=== PATIENT | male | born 1980 | race Caucasian/White ===

== ENCOUNTER 2017-03-11 18:55 | Emergency (ER) | payer OTHER ==
[2017-03-11 19:09] VITALS: BP 144/91; PULSE 66; RESP 16; O2SAT 97
--- NOTE | 2017-03-11 19:55 | ED.REPORT ---
HPI-General Illness Date of Service Mar 11, 2017 ED Provider: Razia Viera DO Pt is an otherwise healthy 36 year old male who presents to the ED after a needlestick exposure on 03/08/17. 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 He denies any other other symptoms. Nursing Notes Stated Complaint: EXPOSURE Chief Complaint: General Complaint Nursing Notes Reviewed: Yes Allergies: Coded Allergies: No Known Allergies (Unverified , 03/11/17) General Time Seen by MD: 19:54 Chief Complaint Other (Needle stick) Hx Obtained From: Patient Arrived By: Walk-in Sudden in Onset?: No Onset Occurred: 3 days ago Symptom Duration: Since onset Severity: Current: No pain currently Severity: Maximum: No pain Recent Healthcare: No recent doctor visit, No recent hospitalization Similar Sx Previous: No Past Medical History Past Medical History Denies Past Surgical History Denies Smoking History Unknown if Ever Smoker Social History Alcohol Use: Denies alcohol use Drug Use: Denies drug use Ambulatory Status Independent Review of Systems Full Review of Systems Constitutional: Denies: Fever Respiratory: Denies: Non-productive cough, Shortness of breath Musculoskeletal: Reports: Extremity pain Complete sys rev & neg: except as marked. Physical Exam Vital Signs Vital Signs Date Time Temp Pulse Resp B/P Pulse Ox O2 Delivery O2 Flow Rate FiO2 03/11/17 19:09 36.5 66 16 144/91 97 Room Air Initial VS: Reviewed General/Constitutional: Awake, Alert Wrist / Hand: Neurologic intact, Vascular intact No break in skin seam. Interpretation & Diagnostics Lab Results Interpretation Test 03/11/17 19:22 Re-Eval/Medical Decision Source of Hx: Old records Time of Eval: 00:32 Re-Evaluation/Progress Note: Pt rechecked. Informed pt of plan for discharge. Pt understands and agrees with plan for discharge. F/U instructions and RTER warnings given. All questions addressed. Counseled Regarding: Diagnosis, Lab results, Need for follow-up, When/why to return to ED Discharge & Departure Primary Impression: Needlestick injury accident Encounter type: initial encounter Qualified Code: W27.3XXA - Contact with needle (sewing), initial encounter Disposition: Home Discharge Condition All VS Reviewed: Yes Condition: Stable Additional Instructions: Call the number for a follow up with [facility] with your results. Return to the Emergency Department for any new or worsening symptoms. Referrals: [facility] Scribe Attestation Portions of this note were transcribed by Precious Morris. I, Dr. Randle personally performed the history, physical exam and medical decision-making; I reviewed and confirmed the accuracy of the information in the transcribed note. Signed by: Kyleigh Hobbs, 03/11/17 and 23:50. copies to: [facility] Maximiliano Randle DO Mar 11, 2017 19:55 Precious Marti Mar 11, 2017 23:08
== END 2017-03-12 00:56 | disposition home or self-care (01) ==
LOC: SED 18:55
DX: S61.439A Puncture wound without foreign body of unspecified hand, initial encounter (principal); W46.0XXA Contact with hypodermic needle, initial encounter; Y93.89 Activity, other specified; Y92.238 Other place in hospital as the place of occurrence of the external cause; Y99.0 Civilian activity done for income or pay
CPT/HCPCS: 36415; 86706; 87340; 99283; G0433